=== PATIENT | male | born 1955 | race Caucasian/White ===

== ENCOUNTER 2017-07-30 11:27 | Inpatient (IN) | payer OTHER ==
[~2017-07-30] VITALS: Ht 175.3 cm; Wt 79.9 kg
--- NOTE | 2017-07-30 11:57 | ED CARDIAC/CP/PALPITATIONS ---
History of Present Illness General Chief Complaint: General Adult Stated Complaint: HYPOTENTION Source: patient Exam Limitations: no limitations Allergies Coded Allergies: No Known Allergies (07/30/17) Reconcile Medications Lisinopril 20 MG TABLET 1 TAB PO DAILY HEART (Reported) Pantoprazole Sodium 40 MG TABLET.DR 1 TAB PO DAILY GI (Reported) Simvastatin (Simvastatin*) 40 MG TABLET 1 TAB PO QPM CHOLESTEROL (Reported) Testosterone 50 MG/5 GRAM (1 %) GEL..GRAM. 1 TUBE TOP DAILY LOW T (Reported) Zolpidem Tartrate (Zolpidem Tartrate ER) 12.5 MG TAB.MPHASE 1 TAB PO QPM SLEEP (Reported) Triage Note: PT ARRIVES FROM FRONT LOBBY WAS AT DR ROTH OFFICE FOR F/U FROM [facility] NOTED TO BE HYPOTENSIVE 80'S UPON ARRIVAL LETHAGIC, CO "SQUEEZING IN BRAIN" NEED PROTEIN, PT UNABLE TO COLLECT THOUGHTS EPIFANIO CARTER AT BEDSIDE IN [facility] IV ESTABLISHED TO . 120/72 HR 68 Triage Nurses Notes Reviewed? yes HPI: 62-year-old male presents emergency department complaining of weakness and lethargy. Patient was at his primary doctor's office today and noted to be hypertensive. He has been having hiccups for the past 10 days. For the past 3 days he has been having the squeezing sensation radiating up his neck to his brain. States he has not been able to eat or drink anything for the past 10 days. His urine has been very dark. He denies any chest pain or shortness of breath. Denies cough. Denies any fever or chills. No nausea or vomiting. No diarrhea or constipation. Patient does have a history of hypertension for which he takes lisinopril for. Patient is an overall poor historian. (Dylon FLOOD,Osvaldo) Vital Signs & Intake/Output Vital Signs & Intake/Output Vital Signs Date Time Temp Pulse Resp B/P B/P Pulse O2 O2 Flow FiO2 Mean Ox Delivery Rate 07/30 1531 90 18 107/60 96 Room Air 07/30 1245 97 Room Air 07/30 1230 100 18 109/65 96 Room Air 07/30 1215 98.5 130 18 114/77 07/30 1152 98.5 130 18 114/77 97 Room Air (Yocasta KEENAN,Jean Goldstein) Past History Travel History Traveled to [place] past 21 day No Medical History Any Pertinent Medical History? see below for history Neurological: NONE EENT: NONE Cardiovascular: hypertension Respiratory: NONE Gastrointestinal: NONE Hepatic: NONE Renal: NONE Musculoskeletal: NONE Psychiatric: NONE Endocrine: NONE Surgical History Surgical History: none Psychosocial History What is your primary language Urdu Tobacco Use: Never used Family History Hx Contributory? No (Osvaldo Osborne PA-C) Review of Systems Review of Systems Constitutional: Reports: see HPI. EENTM: Reports: no symptoms. Respiratory: Reports: no symptoms. Cardiovascular: Reports: see HPI. GI: Reports: see HPI. Genitourinary: Reports: no symptoms. Musculoskeletal: Reports: no symptoms. Skin: Reports: no symptoms. Neurological/Psychological: Reports: see HPI. All Other Systems: Reviewed and Negative (Dylon FLOOD,Osvaldo) Physical Exam Physical Exam General Appearance: Pt is slightly diaphoretic, lethargic, responds appropriately, no distress Head: atraumatic, normal appearance Eyes: Bilateral: normal appearance, PERRL, EOMI. Ears, Nose, Throat: Dry mucous membranes Neck: supple no JVD Respiratory: normal breath sounds, no respiratory distress, lungs clear Cardiovascular: irregularly irregular Peripheral Pulses: 2+ radial (R), 2+ radial (L) Gastrointestinal: normal bowel sounds, soft, non-tender Neurologic/Psych: no motor/sensory deficits, awake, alert, oriented x 3, order puller II- XII nml as tested, No pronator drift. Finger to nose intact, Gait not tested Skin: mild diaphoresis Core Measures ACS in differential dx? Yes CVA/TIA Diagnosis Yes Sepsis Present: No Sepsis Focused Exam Completed? No (Dylon FLOOD,Osvaldo) Progress Differential Diagnosis: AMI, aortic dissection, atrial fibrillation, CHF/pulm edema, hyperkalemia, hypovolemia, pneumonia, pulmonary embolism, unstable angina , hyponatremia Diagnostic Imaging: Viewed by Me: Radiology Read. Discussed w/RAD: Radiology Read. CXR Impression: PATIENT: AMANDA FOWLER PRESENT AGE: 62 PATIENT ACCOUNT NO: [id number] : 55 LOCATION: [facility] ORDERING PHYSICIAN: Osvaldo Osborne PA-C SERVICE DATE: 07/30/17 EXAM TYPE: RAD - XRY-PORTABLE CHEST XRAY EXAMINATION: XR PORTABLE CHEST CLINICAL INFORMATION: Chest pain. Atrial fibrillation. COMPARISON: None available. TECHNIQUE: Portable frontal view of the chest was obtained. FINDINGS: Symmetric lung inflation. No focal consolidation or pneumothorax. Mild blunting of the left costophrenic angle, possibly a small effusion. No overt edema. Cardiac silhouette size is normal. No acute osseous findings. IMPRESSION: Trace left pleural effusion. The lungs are otherwise clear. DICTATED BY: Jean Carranza MD DATE/TIME DICTATED:07/30/171404 SENIOR ADVISORY:DIAZ DATE/TIME TRANSCRIBED:07/30/171404 CONFIDENTIAL, DO NOT COPY WITHOUT APPROPRIATE AUTHORIZATION. <Electronically signed in Other Vendor System> SIGNED BY: Jean Carranza MD 07/30/17 1410 Initial ED EKG: Atrial fibrillation at 129 bmp. Comments: Update @ 1245: D/W cardio Dr. Arndt. Recommended anticoags. He will follow case D/w hospitalist, admit to tele Patient with history of hypertension presenting with 3 days of a "funny feeling shooting from his neck to his brain". He was found to be hypotensive at his doctor's appointment today. Initial EKG shows atrial fibrillation 129 bpm. Patient was found to be hyponatremic at 123 with blood work. He is slightly hypocalcemic. I did discuss this case with cardiology. Patient was started on IV heparin and he is being fluid resuscitated. Patient will be admitted to telemetry for further management. (Dylon FLOOD,Osvaldo) Plan of Care: Orders Procedure Date/time Status Heart Healthy Diet 07/30 D Active TROPONIN LEVEL 07/30 1800 Active EKG 07/30 1800 Active BASIC ELECTROLYTES PLUS BUN&CR 07/30 1600 Active ECHOCARDIOGRAM 07/30 1342 Active Lab Add-on Test 07/30 1339 Active Pathway - chart 07/30 1337 Active Code Status 07/30 1337 Active Patient Data 07/30 1327 Active Misc Message 07/30 1325 Active ED Holding Orders 07/30 1325 Active Admit to inpatient 07/30 1325 Active Vital Signs 07/30 1325 Active Code Status 07/30 1325 Complete Add-on Test (ER Only) 07/30 1316 Active Add-on Test (ER Only) 07/30 1258 Active Add-on Test (ER Only) 07/30 1250 Active Intake & Output 07/30 1246 Active URINE DRUGS OF ABUSE 07/30 1218 Complete URINE LYTES, SPOT 07/30 1218 Complete FingerStick- Glucose 07/30 1207 Active THYROID STIMULATING HORMONE 07/30 1200 Active PARTIAL THROMBOPLASTIN TIME 07/30 1200 Complete PROTHROMBIN TIME 07/30 1200 Complete SERUM OSMOLALITY 07/30 1200 Active MAGNESIUM 07/30 1200 Active GLYCOSYLATED HGB 07/30 1200 Active FREE T4 07/30 1200 Active ETHANOL 07/30 1200 Active URINE OSMOLALITY 07/30 1131 Complete URINALYSIS 07/30 1131 Complete TROPONIN LEVEL 07/30 1131 Active LIPASE 07/30 1131 Active COMPREHENSIVE METABOLIC PANEL 07/30 1131 Active CBC WITHOUT DIFFERENTIAL 07/30 1131 Complete EKG 07/30 1128 Active Pathway - chart 07/30 UNK Active House Staff 07/30 UNK Active Lab Add-on Test 07/30 UNK Active Lab Add-on Test 07/30 UNK Active VTE Mechanical Prophylaxis 07/30 UNK Active Vital Signs 07/30 UNK Active Current Medications Sig/Ernesto Start time Last Medication Dose Stop Time Status Admin Atorvastatin Calcium 20 MG 1700 07/30 1700 UNVr (Lipitor) Heparin Sodium 25,000 UNIT Q24H 07/30 1330 AC 07/30 (Porcine) 1453 (Heparin) Sodium Chloride 500 ML Diltiazem HCl 125 MG Q24H 07/30 1215 AC 07/30 (Cardizem DRIP) 1241 Sodium Chloride 100 ML (Normal Saline 0.9%) Laboratory Tests 07/30/17 1218: Urine Color YEL, Urine Clarity CLEAR, Urine pH 6.0, Ur Specific [place] 1.020, Urine Protein NEG, Urine Ketones NEG, Urine Nitrite NEG, Urine Bilirubin NEG, Urine Urobilinogen 0.2, Ur Leukocyte Esterase NEG, Ur Microscopic SEDIMENT EXAMINED, Urine RBC 1-3, Urine WBC 1-3 H, Ur Epithelial Cells FEW, Hyaline Casts 1-3 H, Granular Casts 1-3 H, Urine Mucus FEW, Urine Hemoglobin TRACE- INTACT H, Urine Glucose NEG 07/30/17 1218: Urine Opiates Screen < 100, Methadone Screen < 40, Barbiturate Screen < 60, Ur Phencyclidine Scrn < 6.00, Amphetamines Screen < 100, U Benzodiazepines Scrn < 85, Urine Cocaine Screen < 50, Urine Cannabis Screen 79.10 H, Ur Random Creatinine 126.4, Ur Random Sodium < 5 L, Ur Random Potassium 23.0, Fraction Sodium Excret 0.0 07/30/17 1200: Anion Gap 12, Estimated GFR > 60, BUN/Creatinine Ratio 42.7 H, Glucose 181 H, Hemoglobin A1c Pending, Serum Osmolality 278 L, Calcium 7.9 L, Magnesium 2.9 H, Total Bilirubin 0.8, AST 66 H, ALT 65, Alkaline Phosphatase 64, Troponin I < 0.01, Total Protein 6.0 L, Albumin 2.9 L, Globulin 3.1, Albumin/Globulin Ratio 0.9 L, Lipase 183, TSH 1.320, Free T4 1.91, PT 13.8 H, INR 1.26 H, APTT 28, CBC w Diff MAN DIFF ORDERED, RBC 5.18, MCV 89.5, MCH 31.0, MCHC 34.6, RDW 15.1 H, MPV 9.1, Gran % 86.8 H, Lymphocytes % 9.9 L, Monocytes % 3.2, Eosinophils % 0.1, Basophils % 0, Absolute Granulocytes 7.3 H, Segmented Neutrophils 85 H, Absolute Lymphocytes 0.8 L, Lymphocytes 7 L, Monocytes 8, Absolute Monocytes 0.3, Absolute Eosinophils 0, Absolute Basophils 0, Platelet Estimate VERIFIED BY SMEAR, Normocytic RBCs VERIFIED, Normochromic RBCs VERIFIED, Serum Alcohol < 10.0 07/30/17 1131: Urine Osmolality 617 (Yocasta KEENAN,Jean Goldstein) Departure Departure Disposition: STILL A PATIENT Condition: Stable Referrals: Ernestina Roth MD (PCP/Family) Departure Forms: Customer Survey General Discharge Information Admission Note Spoke With: Domi Dickerson MD Documentation of Exam: Documentation of any treatments & extenuating circumstances including Concerns Regarding Discharge (functional status, medication knowledge or non-compliance, living conditions, etc.) that warrant an admission rather than observation: [New onset atrial fibrillation and hyponatremia requiring cardiology consult, IV heparin, IV rate control, telemetry monitoring, trend EKGs and troponins, electrolyte replacement, premature discharge medically unsafe] (Dylon FLOOD,Osvaldo) Departure Clinical Impression Primary Impression: Atrial fibrillation Secondary Impressions: Hyponatremia PA/EYEGLASS FITTER Co-Sign Statement Statement: ED Attending supervision documentation- [X] I saw and evaluated the patient. I have also reviewed all the pertinent lab results and diagnostic results. I agree with the findings and the plan of care as documented in the PA's/EYEGLASS FITTER's documentation. Patient presents for evaluation of hypotension and irregular heartbeat at his physician's office. Physical examination reveals an alert and interactive gentleman in no apparent respiratory distress. Heart rate is moderately rapid and irregular. [] I have reviewed the ED Record and agree with the PA's/EYEGLASS FITTER's documentation. [] Additions or exceptions (if any) to the PAs/EYEGLASS FITTER's note and plan are summarized below: [] (Yocasta KEENAN,Jean Goldstein) Critical Care Note Critical Care Note Critical Care Time: non-applicable (Dylon FLOOD,Osvaldo)
[2017-07-30 12:08] LABS: ABSOLUTE BASOPHIL COUNT 0 /CUMM (0.0-0.2); ABSOLUTE EOSINOPHIL COUNT 0 /CUMM (0.0-0.7); ABSOLUTE GRANULOCYTE CT 7.3 /CUMM (1.4-6.5); ABSOLUTE LYMPH COUNT 0.8 /CUMM (1.2-3.4); ABSOLUTE MONOCYTE COUNT 0.3 /CUMM (0.10-0.60); BASOPHIL % 0 % (0.0-2.0); EOSINOPHIL % 0.1 % (0-5); GRANULOCYTE % 86.8 % (42.2-75.2); HEMATOCRIT 46.3 % (42-52); MEAN CORPUSCULAR HGB CONC 34.6 G/DL (33.0-37.0); MEAN CORPUSCULAR VOLUME 89.5 FL (80.0-94.0); MEAN PLATELET VOLUME 9.1 FL (7.4-10.4); PLATELET COUNT 136 /CUMM (130-400); RBC DISTRIBUTION WIDTH 15.1 % (11.5-14.5); RED BLOOD CELL CT 5.18 /CUMM (4.70-6.10); WHITE BLOOD CELL COUNT 8.4 /CUMM (4.8-10.8)
--- NOTE | 2017-07-30 13:31 | History & Physical ---
Candie Sue MD 07/30/17 1331: General Information and HPI MD Statement: I have seen and personally examined AMANDA FOWLER and documented this H&P. The patient is a 62 year old M who presented with a patient stated chief complaint of [hypotension]. Source of Information: patient History of Present Illness: 62-year-old gentleman with past medical history of hypertension, dyslipidemia was sent from Dr. Guo office with complaints of low blood pressure and hicough. was in usual state of health until 10 days ago, following which had intractable hiccups with nausea and couple of episodes of vomiting and saw Dr. Guo who started him on antiemetic and baclofen. Patient's hiccups stopped but patient developed shooting"arterial pulsation"going from his neck to the head on and off for the past 4 days. Patient went to see his primary care physician again who suggested to stop baclofen and checked his blood pressure which was found to be in 80s and hence was sent to [facility]. He denied chest pain, palpitation, fever, chills, abdominal pain, diarrhea, constipation, weakness, numbness, tingling sensation during the same time. Patient gives history of tick bite 10 days ago which he pulled it off. Allergies/Medications Allergies: Coded Allergies: No Known Allergies (07/30/17) Home Med list Lisinopril 20 MG TABLET 1 TAB PO DAILY HEART (Reported) Pantoprazole Sodium 40 MG TABLET.DR 1 TAB PO DAILY GI (Reported) Simvastatin (Simvastatin*) 40 MG TABLET 1 TAB PO QPM CHOLESTEROL (Reported) Testosterone 50 MG/5 GRAM (1 %) GEL..GRAM. 1 TUBE TOP DAILY LOW T (Reported) Zolpidem Tartrate (Zolpidem Tartrate ER) 12.5 MG TAB.MPHASE 1 TAB PO QPM SLEEP (Reported) Compliance With Home Meds: GOOD Past History Travel History Traveled to [place] past 21 day No Medical History Neurological: NONE EENT: NONE Cardiovascular: hypertension Respiratory: NONE Gastrointestinal: NONE Hepatic: NONE Renal: NONE Musculoskeletal: NONE Psychiatric: NONE Endocrine: NONE Surgical History Surgical History: none Past Family/Social History Family History Relations & Conditions if any MOTHER (atrial fib). Psychosocial History Where do you live? Home Who Do You Live With? spouse Services at Home: None Primary Language: Hebrew Smoking Status: Never Smoked ETOH Use: denies use Illicit Drug Use: denies illicit drug use Functional Ability ADLs Independent: dressing, eating, toileting, bathing. Ambulation: independent IADLs Independent: shopping, housework, finances, food prep, telephone, transportation , medication admin. Review of Systems Review of Systems Constitutional: Reports: no symptoms. Cardiovascular: Reports: no symptoms. Respiratory: Reports: no symptoms. GI: Reports: no symptoms. Genitourinary: Reports: no symptoms. Musculoskeletal: Reports: no symptoms. Skin: Reports: no symptoms. Exam & Diagnostic Data Last 24 Hrs of Vital Signs/I&O Vital Signs Date Time Temp Pulse Resp B/P B/P Pulse O2 O2 Flow FiO2 Mean Ox Delivery Rate 07/30 1649 98.2 91 18 114/66 96 07/30 1531 90 18 107/60 96 Room Air 07/30 1245 97 Room Air 07/30 1230 100 18 109/65 96 Room Air 07/30 1215 98.5 130 18 114/77 07/30 1152 98.5 130 18 114/77 97 Room Air Intake & Output 07/30 1600 07/30 0800 07/30 0000 Intake Total 1000 Output Total Balance 1000 Intake, IV 1000 Patient 170 lb Weight Weight Estimated Measurement Method Physical Exam General Appearance Alert, Oriented X3, Cooperative, No Acute Distress HEENT PERRLA Neck No JVD, No thryomegaly, +2 Carotid Pulse wo Bruit Cardiovascular Normal S1, Normal S2, irregular Lungs Clear to Auscultation Abdomen Soft, No Tenderness, No Hepatospenomegaly Neurological Normal Speech, Strength at 5/5 X4 Ext, Normal Tone, Sensation Intact Extremities No Cyanosis, No Edema, Normal Pulses Last 24 Hrs of Labs/Mike: Laboratory Tests 07/30/17 1808: Troponin I Pending 07/30/17 1650: Anion Gap 9, Estimated GFR > 60, BUN/Creatinine Ratio 38.9 H 07/30/17 1218: Urine Color YEL, Urine Clarity CLEAR, Urine pH 6.0, Ur Specific [place] 1.020, Urine Protein NEG, Urine Ketones NEG, Urine Nitrite NEG, Urine Bilirubin NEG, Urine Urobilinogen 0.2, Ur Leukocyte Esterase NEG, Ur Microscopic SEDIMENT EXAMINED, Urine RBC 1-3, Urine WBC 1-3 H, Ur Epithelial Cells FEW, Hyaline Casts 1-3 H, Granular Casts 1-3 H, Urine Mucus FEW, Urine Hemoglobin TRACE- INTACT H, Urine Glucose NEG 07/30/17 1218: Urine Opiates Screen < 100, Methadone Screen < 40, Barbiturate Screen < 60, Ur Phencyclidine Scrn < 6.00, Amphetamines Screen < 100, U Benzodiazepines Scrn < 85, Urine Cocaine Screen < 50, Urine Cannabis Screen 79.10 H, Ur Random Creatinine 126.4, Ur Random Sodium < 5 L, Ur Random Potassium 23.0, Fraction Sodium Excret 0.0 07/30/17 1200: Anion Gap 12, Estimated GFR > 60, BUN/Creatinine Ratio 42.7 H, Glucose 181 H, Hemoglobin A1c Pending, Serum Osmolality 278 L, Calcium 7.9 L, Magnesium 2.9 H, Total Bilirubin 0.8, AST 66 H, ALT 65, Alkaline Phosphatase 64, Troponin I < 0.01, Total Protein 6.0 L, Albumin 2.9 L, Globulin 3.1, Albumin/Globulin Ratio 0.9 L, Lipase 183, TSH 1.320, Free T4 1.91, PT 13.8 H, INR 1.26 H, APTT 28, CBC w Diff MAN DIFF ORDERED, RBC 5.18, MCV 89.5, MCH 31.0, MCHC 34.6, RDW 15.1 H, MPV 9.1, Gran % 86.8 H, Lymphocytes % 9.9 L, Monocytes % 3.2, Eosinophils % 0.1, Basophils % 0, Absolute Granulocytes 7.3 H, Segmented Neutrophils 85 H, Absolute Lymphocytes 0.8 L, Lymphocytes 7 L, Monocytes 8, Absolute Monocytes 0.3, Absolute Eosinophils 0, Absolute Basophils 0, Platelet Estimate VERIFIED BY SMEAR, Normocytic RBCs VERIFIED, Normochromic RBCs VERIFIED, Serum Alcohol < 10.0 07/30/17 1131: Urine Osmolality 617 Diagnostic Data EKG Results Atrial fibrillation with a heart rate of 1:30. CXR Results Trace left pleural effusion. The lungs are otherwise clear. Assessment/Plan Assessment: 62-year-old gentleman with past medical history of hyperlipidemia, hypertension was sent from Dr. Guo office with complaints of low blood pressure and hicough Admission vitals Temperature 98.5, pulse rate 130, respiratory rate 18, blood pressure 114/77, saturating 97 at room air. Admission labs WBC 8.4, hemoglobin 16, platelet count 136, sodium 123, BUN 47, creatinine 1.1, glucose 181, serum osmolality 278, calcium 7.9 corrected calcium 8.4, troponin 0.01 ED treatment 1 L normal saline, Cardizem 10 mg IV push, patient is on Cardizem drip now. Assessment and plan 1. Atrial fibrillation with RVR-his atrial fibrillation can be secondary due to dehydration/systemic hypertension. Patient with peripheral smear showing Anaplasma but this causes heart block rather than atrial fibrillation. Patient was seen by Dr. Allen was suggested to continue Cardizem, IV heparin given that we don't know how long he was on A. fib though his CHADVAS score is one. Echocardiogram in a.m. 2 hypovolemic hyponatremia-patient was given 1 L of normal saline. His repeat sodium was also 123 hence we will give normal saline at 70 mL per hour with sodium correction not more than 8-10 mEq in 24 hours. 3. Elevated BUN:CR-looks more likely prerenal as it anemia given that he was having decreased by mouth intake for the past few week. 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 ID on board. 5. Cannabis use. Code-full code Diet-heart healthy diet DVT prophylaxis-on heparin As Ranked By This Provider Problem List: 1. Atrial fibrillation 2. Hyponatremia Core Measures/Misc (10/25) Acute Coronary Syndrome ACS Diagnosis: No Congestive Heart Failure Congestive Heart Failure Diagnosis No Cerebrovascular Accident CVA/TIA Diagnosis: No VTE (View Protocol) VTE Risk Factors Age>40 No Mechanical VTE Prophylaxis d/t Other No VTE Pharm Prophylaxis d/t Other Sepsis (View protocol) Sepsis Present: No If YES complete Sepsis Event Note If YES complete Sepsis Event Note Galen KEENAN,Brayden 07/30/17 1342: Core Measures/Misc (10/25) Sepsis (View protocol) If YES complete Sepsis Event Note If YES complete Sepsis Event Note Resident Review Statement Resident Statement: examined this patient, discussed with internal audit manager, amended to note Other Findings: Assessment This 62 year-old gentleman with a past medical history of hypertension, hyperlipidemia,skin cancer s/p excision with no mets, presents with atrial fibrillation with rapid ventricular rate. Impression * New onset of atrial fibrillation with rapid ventricular rate with [id number] score of 1, which may or may not necessitate oral anticoagulation. Hypertension is the most common cause of atrial fibrillation in the [place], his hx of hypertension puts him at risk. * Pre-renal azotemia most likely secondary to dehydration as evident by an elevated BUN/creatinine ratio. * Hyponatremia with the serum osmolarity of 278 and asymptomatic. Given the elevated BUN/creatinine ratio,hypotension, and decrease fluid intake, patient presents with laboratory and clinical evidence suggestive of hypovolemic hyponatremia. In this case he will have a hemodynamic derived ADH stimulus, hence the hyponatremia (his urine osmolarity of 687 lends further credence to an ADH stimulus). Plan Admit to cardiac telemetry for close monitoring Continue Cardizem drip for rate control with a goal of heart rate of less than 110 Continue heparin drip per cardiology recommendation Obtain TSH level to rule out thyroid causes for the A. fib Obtain an echocardiogram to assess for valvular pathologies Obtain urine lites to further classify the hyponatremia Hypovolemic hyponatremia has a propensity to rapidly correct if patient receives IV fluid hydration(this is due to the turning off of the hemodynamic stimulus ADH release) will obtain another BEP in 4 hours to closely monitor sodium levels and avoid overcorrection. Moderate to significant increase in urine output can also use a surrogate marker of possible impedningg overcorrection Obtain AIC DVT prophylaxis: address by a heparin drip Code status: FULL CODE Alex KEENAN,Mariel 07/30/17 1508: Core Measures/Misc (10/25) Sepsis (View protocol) If YES complete Sepsis Event Note If YES complete Sepsis Event Note Attending MD Review Statement Attending Statement Attending MD Statement: examined this patient, discuss w/resident/PA/INSURANCE OFFICE MANAGER, agreed w/resident/PA/INSURANCE OFFICE MANAGER, reviewed EMR data (avail), discussed with nursing, reviewed images Attending Assessment/Plan: 62-year-old male with past medical history hypertension and hyperlipidemia here with with new onset rapid A. fib. Patient was being evaluated at his PCPs office Vishal Leonard MD's office for intractable hiccups where he was noted to be hypotensive and in new rapid A. fib. The etiology of the A. fib is likely long- standing hypertension and hypertensive heart disease, there is no evidence of hypothyroidism or acute ischemia. At this point will bring him in to telemetry, continue the Cardizem for rate control and IV heparin for anticoagulation. Dr. Allen knows to see him and will follow-up with Dr. Allen. We'll get an echocardiogram, rule him out with serial enzymes. He also is dehydrated with hypovolemic hyponatremia and PIPER with an elevated BUN. Would hold the KALA inhibitor and give gentle hydration. Check thyroid functions and follow closely.
[2017-07-30 13:39] LABS: PT 13.8 SEC (9.4-12.5); PTT 28 SEC (25-37)
--- NOTE | 2017-07-30 13:49 | Admission Certification ---
Admission Certification Certification Statement - As attending physician, I certify that at the time of - admission, based on clinical presentation, severity of - symptoms, need for further diagnostic testing and - therapeutic interventions, and risk of adverse outcomes - without in-hospital treatment, in my clinical assessment, - this patient requires an acute hospital stay for a minimum - of two nights or longer. I have also considered psychsocial - factors such as support system, advanced age, financial - issues, cognitive issues, and failed out-patient treatments, - past re-admission history, safety of patient, and lack of - compliance as applicable. Specific rationale supporting this admission is: New rapid afib, needs anticoagulation and rate control
--- NOTE | 2017-07-30 14:10 | RADIOLOGY REPORT ---
EXAMINATION: XR PORTABLE CHEST CLINICAL INFORMATION: Chest pain. Atrial fibrillation. COMPARISON: None available. TECHNIQUE: Portable frontal view of the chest was obtained. FINDINGS: Symmetric lung inflation. No focal consolidation or pneumothorax. Mild blunting of the left costophrenic angle, possibly a small effusion. No overt edema. Cardiac silhouette size is normal. No acute osseous findings. IMPRESSION: Trace left pleural effusion. The lungs are otherwise clear.
[2017-07-30] MEDS ORDERED: SIMVASTATIN40 M1 PO (15:06)
[2017-07-30] MEDS ORDERED: LISINOPRIL20 M1 PO (15:06)
[2017-07-30] MEDS ORDERED: PANTOPRAZOLE SO40 M1 PO (15:07)
[2017-07-30] MEDS ORDERED: ZOLPIDEM TART12.5 M1 PO (15:07)
[2017-07-30] MEDS ORDERED: TESTOSTERONE TOP (15:08)
[2017-07-30 16:49] VITALS: BP 114/66
--- NOTE | 2017-07-30 17:00 | Cons- Infect Disease ---
General Information and HPI Consulting Request Date of Consult: 07/30/17 Requested By: Mariel Johnson MD Reason for Consult: Intracytoplasmic inclusions in the white blood cells on the peripheral smear Source of Information: patient History of Present Illness: This is a 62-year-old man with a history of hypertension and Lyme disease, seen by his primary care physician 10 days prior to admission for hiccups and vomiting, which reportedly resolved with symptomatic treatment, admitted today after he was referred to the emergency room by his primary care physician because of recurrent hiccups and hypotension. On arrival to the emergency room he complained of a squeezing pain in the neck up to the brain. He was afebrile , with a blood pressure of 120/72 and initial heart rate of 68 but, upon connection to the monitor car operator, he was found to be in atrial fibrillation with a rapid ventricular response in the 120s-130s. Laboratory data revealed a white blood cell count of 8000, H&H 16 and 46, platelets 136,000, with the peripheral smear revealing rare intracytoplasmic structures, glucose 181, BUN/ creatinine 47 and 1.1, sodium 123, AST/ALT 66 and 65, INR 1.26. Urinalysis 1-3 RBC/1-3 WBCs. Chest x-ray revealed a trace left pleural effusion. He was begun on Cardizem, with a decrease in his heart rate, and Heparin. He does report removing a tick from his right flank 10 days prior to admission and does spend a significant amount of time outdoors. He also notes recent chills. Allergies/Medications Allergies: Coded Allergies: No Known Allergies (07/30/17) Home Med List: Lisinopril 20 MG TABLET 1 TAB PO DAILY HEART (Reported) Pantoprazole Sodium 40 MG TABLET.DR 1 TAB PO DAILY GI (Reported) Simvastatin (Simvastatin*) 40 MG TABLET 1 TAB PO QPM CHOLESTEROL (Reported) Testosterone 50 MG/5 GRAM (1 %) GEL..GRAM. 1 TUBE TOP DAILY LOW T (Reported) Zolpidem Tartrate (Zolpidem Tartrate ER) 12.5 MG TAB.MPHASE 1 TAB PO QPM SLEEP (Reported) Past History Travel History Traveled to [place] past 21 day No Medical History Neurological: NONE EENT: NONE Cardiovascular: hypertension Respiratory: NONE Gastrointestinal: NONE Hepatic: NONE Renal: NONE Musculoskeletal: NONE Psychiatric: NONE Endocrine: NONE Surgical History Surgical History: none Review of Systems Review of Systems Constitutional: Reports: chills. Denies: fever. Cardiovascular: Denies: chest pain. Respiratory: Denies: short of breath. Musculoskeletal: Reports: neck pain. Denies: joint pain, muscle pain. Skin: Denies: rash. All Other Systems: Reviewed and Negative Exam & Diagnostic Data Last 24 Hrs of Vital Signs/I&O Vital Signs Date Time Temp Pulse Resp B/P B/P Pulse O2 O2 Flow FiO2 Mean Ox Delivery Rate 07/30 1531 90 18 107/60 96 Room Air 07/30 1245 97 Room Air 07/30 1230 100 18 109/65 96 Room Air 07/30 1215 98.5 130 18 114/77 07/30 1152 98.5 130 18 114/77 97 Room Air Intake & Output 07/30 1600 07/30 0800 07/30 0000 Intake Total 1000 Output Total Balance 1000 Intake, IV 1000 Patient 170 lb Weight Weight Estimated Measurement Method Physical Exam Other Physical Findings: He is awake and alert in no acute distress. He is afebrile. Skin reveals no rash. HEENT exam is negative. Neck is supple with no adenopathy. Lungs are clear. Heart irregular rhythm with no murmur. Abdomen is soft, nontender with positive bowel sounds. Back no CVA tenderness. Extremities no cyanosis, clubbing or edema. Neuro is without focality. Last 24 Hours of Lab Results: Laboratory Tests 07/30 07/30 1218 1218 Toxicology Urine Opiates Screen (>2000 NG/ML) < 100 Methadone Screen (>300 NG/ML) < 40 Barbiturate Screen (>200 NG/ML) < 60 Ur Phencyclidine Scrn (>25 NG/ML) < 6.00 Amphetamines Screen (>1000 NG/ML) < 100 U Benzodiazepines Scrn (>200 NG/ML) < 85 Urine Cocaine Screen (>300 NG/ML) < 50 Urine Cannabis Screen (>50 NG/ML) 79.10 H Urines Urine Color (YEL,AMB,STR) YEL Urine Clarity (CLEAR) CLEAR Urine pH (5.0 - 8.0) 6.0 Ur Specific [place] (1.001 - 1.035) 1.020 Urine Protein (NEG,<30 MG/DL) NEG Urine Ketones (NEG) NEG Urine Nitrite (NEG) NEG Urine Bilirubin (NEG) NEG Urine Urobilinogen (0.1 - 1.0 EU/dl) 0.2 Ur Leukocyte Esterase (NEG) NEG Ur Microscopic SEDIMENT EXAMINED Urine RBC (0 - 5 /HPF) 1-3 Urine WBC (0 - 2 /HPF) 1-3 H Ur Epithelial Cells (NONE,FEW) FEW Hyaline Casts (0/LPF) 1-3 H Granular Casts (NONE /LPF) 1-3 H Urine Mucus (FEW,NONE) FEW Urine Hemoglobin (NEG) TRACE-INTACT H Ur Random Creatinine (mg/dL) 126.4 Ur Random Sodium (30 - 90 mmol/L) < 5 L Ur Random Potassium (mmol/L) 23.0 Fraction Sodium Excret (<1% %) 0.0 Urine Glucose (N MG/DL) NEG 07/30 07/30 1200 1131 Chemistry Sodium (137 - 145 mmol/L) 123 L Potassium (3.5 - 5.1 mmol/L) 4.4 Chloride (98 - 107 mmol/L) 86 L Carbon Dioxide (22 - 30 mmol/L) 25 Anion Gap (5 - 16) 12 BUN (9 - 20 mg/dL) 47 H Creatinine (0.7 - 1.2 mg/dL) 1.1 Estimated GFR (>60 ml/min) > 60 BUN/Creatinine Ratio (7 - 25 %) 42.7 H Glucose (65 - 99 mg/dL) 181 H Hemoglobin A1c (4.2 - 5.8 %) Pending Serum Osmolality (285 - 295 MOSM/KG) 278 L Calcium (8.4 - 10.2 mg/dL) 7.9 L Magnesium (1.6 - 2.3 mg/dL) 2.9 H Total Bilirubin (0.2 - 1.3 mg/dL) 0.8 AST (17 - 59 U/L) 66 H ALT (21 - 72 U/L) 65 Alkaline Phosphatase (< 127 U/L) 64 Troponin I (<0.11 ng/ml) < 0.01 Total Protein (6.3 - 8.2 g/dL) 6.0 L Albumin (3.5 - 5.0 g/dL) 2.9 L Globulin (1.9 - 4.2 gm/dL) 3.1 Albumin/Globulin Ratio (1.1 - 2.2 %) 0.9 L Lipase (23 - 300 U/L) 183 TSH (0.270 - 4.200 uIU/mL) 1.320 Free T4 (0.78 - 2.44 ng/dL) 1.91 Coagulation PT (9.4 - 12.5 SEC) 13.8 H INR (0.90 - 1.17) 1.26 H APTT (25 - 37 SEC) 28 Hematology CBC w Diff MAN DIFF ORDERED WBC (4.8 - 10.8 /CUMM) 8.4 RBC (4.70 - 6.10 /CUMM) 5.18 Hgb (14.0 - 18.0 G/DL) 16.0 Hct (42 - 52 %) 46.3 MCV (80.0 - 94.0 FL) 89.5 MCH (27.0 - 31.0 PG) 31.0 MCHC (33.0 - 37.0 G/DL) 34.6 RDW (11.5 - 14.5 %) 15.1 H Plt Count (130 - 400 /CUMM) 136 MPV (7.4 - 10.4 FL) 9.1 Gran % (42.2 - 75.2 %) 86.8 H Lymphocytes % (20.5 - 51.1 %) 9.9 L Monocytes % (1.7 - 9.3 %) 3.2 Eosinophils % (0 - 5 %) 0.1 Basophils % (0.0 - 2.0 %) 0 Absolute Granulocytes (1.4 - 6.5 /CUMM) 7.3 H Segmented Neutrophils (42.2 - 75.2 %) 85 H Absolute Lymphocytes (1.2 - 3.4 /CUMM) 0.8 L Lymphocytes (20.5 - 51.1 %) 7 L Monocytes (1.7 - 9.3 %) 8 Absolute Monocytes (0.10 - 0.60 /CUMM) 0.3 Absolute Eosinophils (0.0 - 0.7 /CUMM) 0 Absolute Basophils (0.0 - 0.2 /CUMM) 0 Platelet Estimate (ADEQUATE) VERIFIED BY SMEAR Normocytic RBCs VERIFIED Normochromic RBCs VERIFIED Toxicology Serum Alcohol (<10 MG/DL) < 10.0 Urines Urine Osmolality (300 - 1000 MOSM/KG) 617 Last 24 Hours of Mike Results: No cultures Diagnostic Data Recent Imaging Findings: Chest x-ray reveals a trace left pleural effusion with lungs otherwise clear Assessment/Plan Assessment/Plan Impression: This is a 62-year-old man with a history of hypertension and Lyme disease admitted today with the complaints of hiccups, chills and "squeezing of the brain" after he was found to be hypotensive by his primary care physician, found on admission to be afebrile and normotensive with rapid atrial fibrillation, hyperglycemia, hyponatremia and with the peripheral smear revealing rare intracytoplasmic structures. The peripheral smear is suggestive of infection with Anaplasma. His platelet count is borderline and suspect that it may decrease by tomorrow. He does report frequent outdoor exposure and did remove a tick from his right flank approximately 10 days prior to admission, increasing his risk for tickborne infections. The etiology of his "brain squeezing" is unclear but this may be a manifestation of a headache or arthralgias, which would be consistent with Anaplasma. Co-infection with Lyme disease may be present and Lyme carditis could be considered, though this typically presents with heart block and not atrial fibrillation. Other issues include dehydration, with an elevated BUN, hyperglycemia and hyponatremia, which are being evaluated. Suggestion: 1. Serum PCR for Anaplasma 2. Lyme titer 3. Further evaluation/management of his electrolytes per Medicine 4. Begin Doxycycline 100 mg p.o. every 12 hours pending above Consult Acknowledgment - Thank you for your consult request.
--- NOTE | 2017-07-30 21:39 | Cons- Cardiology ---
General Information and HPI Consulting Request Date of Consult: 07/30/17 Requested By: Alex KEENAN,Mariel Cannon History of Present Illness: This patient is a 62 year old male with history of hypertension, dyslipidemia and marijuana abuse who was sent to the ER for evaluation of atrial fibrillation with rapid heart rate and hypotension. The patient was exposed to a tick bite and reported fever, weakness and fatigue along with nausea and vomiting. He also reported having hiccups. He also reports some discomfort in his neck radiating up to his head. These symptoms initially began about ten days ago. Otherwise the patient denies any chest pain, pressure, tightness, shortness of breath, lightheadedness or palpitations. He was not aware of being in atrial fibrillation. The patient is noted to be hyponatremic. Allergies/Medications Allergies: Coded Allergies: No Known Allergies (07/30/17) Home Med List: Lisinopril 20 MG TABLET 1 TAB PO DAILY HEART (Reported) Pantoprazole Sodium 40 MG TABLET.DR 1 TAB PO DAILY GI (Reported) Simvastatin (Simvastatin*) 40 MG TABLET 1 TAB PO QPM CHOLESTEROL (Reported) Testosterone 50 MG/5 GRAM (1 %) GEL..GRAM. 1 TUBE TOP DAILY LOW T (Reported) Zolpidem Tartrate (Zolpidem Tartrate ER) 12.5 MG TAB.MPHASE 1 TAB PO QPM SLEEP (Reported) Review of Systems Review of Systems: headache Past History Travel History Traveled to [place] past 21 day No Medical History Blood Transfusion Hx: No Neurological: NONE EENT: NONE Cardiovascular: AFIB, hyperlipidemia Respiratory: NONE Gastrointestinal: constipation, HICCUPS Hepatic: NONE Renal: NONE Musculoskeletal: fibromyalgia, sciatica Psychiatric: insomnia, substance abuse, "HEARING VOICES" IV HEROIN USE Endocrine: NONE, vitamin D deficiency Blood Disorders: NONE Cancer(s): MELANOMA (NECK) FRAUD PREVENTION ANALYST/Reproductive: NONE Surgical History Surgical History: 1 Family History Relations & Conditions If Any: MOTHER (atrial fib). Psychosocial History Where Do You Live? Home Who Do You Live With? spouse Services at Home: None Primary Language: Khmer Smoking Status: Never Smoked ETOH Use: denies use Illicit Drug Use: denies illicit drug use Functional Ability ADLs Independent: dressing, eating, toileting, bathing. Ambulation: independent IADLs Independent: shopping, housework, finances, food prep, telephone, transportation , medication admin. Exam & Diagnostic Data Vital Signs and I&O Vital Signs Date Time Temp Pulse Resp B/P B/P Pulse O2 O2 Flow FiO2 Mean Ox Delivery Rate 07/30 1649 98.2 91 18 114/66 96 07/30 1531 90 18 107/60 96 Room Air 07/30 1245 97 Room Air 07/30 1230 100 18 109/65 96 Room Air 07/30 1215 98.5 130 18 114/77 07/30 1152 98.5 130 18 114/77 97 Room Air Intake & Output 07/30 1600 07/30 0800 07/30 0000 07/29 1600 07/29 0800 07/29 0000 Intake Total 1000 Output Total Balance 1000 Intake, IV 1000 Patient 170 lb Weight Weight Estimated Measurement Method Physical Exam: General: WD/WN male in NAD; alert and oriented x 3 HEENT: NC/AT, PERRL, EOMI Neck: no JVD, no carotid bruits Heart: RRR w/o murmur Lungs: clear bilaterally Abdomen: soft, NT, +ve bowel sounds Extremities: no edema Assessment/Plan Assessment/Plan * This patient has paroxysmal atrial fibrillation with increased heart rate. He has spontaneously converted back to sinus rhythm. Thyroid function tests are in the normal range. Obtain an echocardiogram to assess his overall EF and to assess his left atrial size. Valvular heart disease is not suspected. His current [id number] score is 1 with only a history of hypertension and therefore we will only anticoalate with aspirin for now. * Hypertension. This is not present at the moment. I suspect the patient is a bit dry. No Lisinopril for now. * This patient appears to ramble which I suspect is related to his marijuana use. Consult Acknowledgment - Thank you for your consult request.
[2017-07-30 21:59] LABS: PTT 64 SEC (25-37)
[2017-07-30 22:23] VITALS: BP 110/70
[2017-07-31 06:54] VITALS: BP 110/68
[2017-07-31 07:28] LABS: ABSOLUTE BASOPHIL COUNT 0 /CUMM (0.0-0.2); ABSOLUTE EOSINOPHIL COUNT 0 /CUMM (0.0-0.7); ABSOLUTE GRANULOCYTE CT 3.6 /CUMM (1.4-6.5); ABSOLUTE LYMPH COUNT 0.8 /CUMM (1.2-3.4); ABSOLUTE MONOCYTE COUNT 0.2 /CUMM (0.10-0.60); BASOPHIL % 0.5 % (0.0-2.0); EOSINOPHIL % 0.5 % (0-5); GRANULOCYTE % 77.7 % (42.2-75.2); MEAN CORPUSCULAR HGB 30.9 PG (27.0-31.0); MEAN CORPUSCULAR VOLUME 90.7 FL (80.0-94.0); MEAN PLATELET VOLUME 10.2 FL (7.4-10.4); RBC DISTRIBUTION WIDTH 14.9 % (11.5-14.5); RED BLOOD CELL CT 4.35 /CUMM (4.70-6.10); WHITE BLOOD CELL COUNT 4.6 /CUMM (4.8-10.8)
[2017-07-31 07:39] LABS: HEMATOCRIT 39.5 % (42-52)
[2017-07-31 07:47] LABS: PLATELET COUNT 120 /CUMM (130-400)
--- NOTE | 2017-07-31 09:03 | PN- Housestaff ---
See Addendum Subjective Follow-up For: Anaplasma Atrial fibrillation Tele-Events Since Last Visit: Normal sinus rhythm Subjective: Seen and examined. Resting comfortably. Does not of any complaints. Family at bedside. Denies any fevers chills, nausea vomiting. Denies any chest pain shortness of breath or palpitations Review of Systems Constitutional: Reports: see HPI. Objective Last 24 Hrs of Vital Signs/I&O Vital Signs Date Time Temp Pulse Resp B/P B/P Pulse O2 O2 Flow FiO2 Mean Ox Delivery Rate 07/31 0800 Room Air Room Air 07/31 0654 98.3 74 16 110/68 98 Room Air 07/30 2223 98.6 87 16 110/70 94 07/30 1649 98.2 91 18 114/66 96 07/30 1531 90 18 107/60 96 Room Air 07/30 1245 97 Room Air 07/30 1230 100 18 109/65 96 Room Air Intake & Output 07/31 1600 07/31 0800 07/31 0000 Intake Total 950 515 Output Total 925 475 Balance 25 40 Intake, IV 650 315 Intake, Oral 300 200 Output, Urine 925 475 Patient 178 lb Weight Weight Bed scale Measurement Method Physical Exam General Appearance: Alert, Oriented X3 Cardiovascular: Normal S1, Normal S2 Lungs: Clear to Auscultation Abdomen: Normal Bowel Sounds, Soft Neurological: Normal Speech Current Medications: Current Medications Sig/Ernesto Start time Last Medication Dose Route Stop Time Status Admin Aspirin 81 MG DAILY 07/31 0700 AC 07/31 PO 0607 Atorvastatin Calcium 20 MG 1700 07/30 1700 AC 07/30 PO 1815 Diltiazem HCl 30 MG Q6 07/31 1200 AC PO Diltiazem HCl 125 MG Q24H 07/30 1215 AC 07/31 Sodium Chloride 100 ML IV 0942 Doxycycline Hyclate 100 MG BID 07/30 2100 AC 07/31 PO 0807 Heparin Sodium 0 .STK-MED ONE 07/30 1434 DC (Porcine) .ROUTE Heparin Sodium 5,000 UNIT ONCE ONE 07/30 1330 DC 07/30 (Porcine) IV 07/30 1331 1453 Heparin Sodium 25,000 UNIT Q24H 07/30 1330 DC 07/30 (Porcine) IV 1453 Sodium Chloride 500 ML Ramelteon 8 MG ONCE ONE 07/30 2030 DC 07/30 PO 07/30 2030 2228 Sodium Chloride 1,000 ML Q13H 07/30 1845 DC 07/31 IV 0948 Sodium Chloride 1,000 ML BOLUS ONE 07/30 1130 DC 07/30 IV 07/30 1229 1145 Last 24 Hrs of Lab/Mike Results Last 24 Hrs of Labs/Mics: Laboratory Tests 07/31/17 0630: Anion Gap 5, Estimated GFR > 60, BUN/Creatinine Ratio 22.2, Calcium 7.0 L, CBC w Diff MAN DIFF ORDERED, RBC 4.35 L, MCV 90.7, MCH 30.9, MCHC 34.0, RDW 14.9 H , MPV 10.2, Gran % 77.7 H, Lymphocytes % 18.0 L, Monocytes % 3.3, Eosinophils % 0.5, Basophils % 0.5, Absolute Granulocytes 3.6, Segmented Neutrophils 71, Band Neutrophils 7 H, Absolute Lymphocytes 0.8 L, Lymphocytes 18 L, Monocytes 4, Absolute Monocytes 0.2, Absolute Eosinophils 0, Absolute Basophils 0, Platelet Estimate DECREASED, Anisocytosis 1+, A.phagocytophil DNA PCR Pending 07/31/17 0222: Anion Gap 5, Estimated GFR > 60, BUN/Creatinine Ratio 35.0 H, Calcium 5.8 *L, Phosphorus 2.6, Magnesium 2.1 07/31/17 022: Troponin I < 0.01, Albumin 2.2 L, 25-OH Vitamin D Total 20.9 L 07/30/17 2200: Sodium Cancelled, Potassium Cancelled, Chloride Cancelled, Carbon Dioxide Cancelled, Anion Gap Cancelled, BUN Cancelled, Creatinine Cancelled, BUN/ Creatinine Ratio Cancelled 07/30/17 2110: APTT 64 H 07/30/17 1808: Troponin I < 0.01, Lyme Disease Antibody Pending 07/30/17 1650: Anion Gap 9, Estimated GFR > 60, BUN/Creatinine Ratio 38.9 H Assessment/Plan Assessment: 62-year-old gentleman with past medical history of hyperlipidemia, hypertension was sent from Dr. Guo office with complaints of low blood pressure and hicough He is currently being treated and evaluated for following conditions Atrial fibrillation with RVR His atrial fibrillation can be secondary due to dehydration/systemic hypertension. Patient with peripheral smear showing Anaplasma but this causes heart block rather than atrial fibrillation. He has reverted back to normal sinus rhythm -IV Cardizem has been discontinued -Patient has been shifted to oral 30 mg every 6 Cardizem he can be discharged on 120mg extended release tablet -Noah VAS score 1 IV heparin was started on admission has been later discontinued anticoagulated with aspirin only #Anaplasmosis Afebrile overnight -We will continue doxycycline 100 mg twice daily -Lyme titer and Anaplasma PCR pending #Hypovolemic hyponatremia-patient was given 1 L of normal saline. His repeat sodium was also 123 hence got normal saline at 70 mL per hour with sodium correction not more than 8-10 mEq in 24 hours. -Improved up to 129 -Fluid restriction 1500 mL #Elevated BUN:CR-looks more likely prerenal as it anemia given that he was having decreased by mouth intake for the past few week. -Resolved #Hypocalcemia Patient has calcium of 7 with albumin of 2.2 his corrected calcium comes out to be 8.4 mg/dL initial value of 5 was likely an error #Cannabis use. Code-full code/Diet-heart healthy diet/DVT prophylaxis-on heparin Problem List: 1. Atrial fibrillation 2. Hyponatremia Pain Ratin Pain Location: na Pain Goal: Pain 4 or less Pain Plan: prn Tomorrow's Labs & Rationales: bep
--- NOTE | 2017-07-31 10:40 | PN- Cardiology ---
Subjective Subjective: The patient reports that he is feeling mostly well with intermittent headache. manager monitoring reveals sinus rhythm. No chest pain. No palpitations. No diaphoresis. No shortness of breath. Objective Vital Signs and I&Os Vital Signs Date Time Temp Pulse Resp B/P B/P Pulse O2 O2 Flow FiO2 Mean Ox Delivery Rate 07/31 0654 98.3 74 16 110/68 98 Room Air 07/30 2223 98.6 87 16 110/70 94 07/30 1649 98.2 91 18 114/66 96 07/30 1531 90 18 107/60 96 Room Air 07/30 1245 97 Room Air 07/30 1230 100 18 109/65 96 Room Air 07/30 1215 98.5 130 18 114/77 07/30 1152 98.5 130 18 114/77 97 Room Air Intake & Output 07/31 1600 07/31 0800 07/31 0000 07/30 1600 07/30 0800 07/30 0000 Intake Total 369 201 4480 Output Total 925 475 Balance 25 40 1000 Intake, IV 833 551 9811 Intake, Oral 300 200 Output, Urine 925 475 Patient 178 lb 170 lb Weight Weight Bed scale Estimated Measurement Method Physical Exam: Gen: NAD HEENT: normal Lungs: clear to auscultation, normal resp. effort Heart: RRR, S1, S2, no murmurs Abdomen: Soft, nontender, no masses Extremities: No clubbing, cyanosis, or edema. Neuro: Alert and oriented x 3, cranial nerves intact Current Medications: Current Medications Sig/Ernesto Start time Last Medication Dose Route Stop Time Status Admin Aspirin 81 MG DAILY 07/31 0700 AC 07/31 PO 0607 Atorvastatin Calcium 20 MG 1700 07/30 1700 AC 07/30 PO 1815 Diltiazem HCl 30 MG Q6 07/31 1200 AC PO Diltiazem HCl 0 .STK-MED ONE 07/30 1227 DC .ROUTE Diltiazem HCl 10 MG ONCE ONE 07/30 1215 DC 07/30 IV PUSH 07/30 1216 1215 Diltiazem HCl 125 MG Q24H 07/30 1215 AC 07/31 Sodium Chloride 100 ML IV 0942 Diltiazem HCl 0 .STK-MED ONE 07/30 1211 DC .ROUTE Doxycycline Hyclate 100 MG BID 07/30 2100 AC 07/31 PO 0807 Heparin Sodium 0 .STK-MED ONE 07/30 1434 DC (Porcine) .ROUTE Heparin Sodium 5,000 UNIT ONCE ONE 07/30 1330 DC 07/30 (Porcine) IV 07/30 1331 1453 Heparin Sodium 25,000 UNIT Q24H 07/30 1330 DC 07/30 (Porcine) IV 1453 Sodium Chloride 500 ML Ramelteon 8 MG ONCE ONE 07/30 2030 DC 07/30 PO 07/30 2031 2228 Sodium Chloride 1,000 ML Q13H 07/30 1845 DC 07/31 IV 0948 Sodium Chloride 1,000 ML BOLUS ONE 07/30 1130 DC 07/30 IV 07/30 1229 1145 Results Last 48 Hrs of Labs/Mics: Laboratory Tests 07/31/17 0630: Anion Gap 5, Estimated GFR > 60, BUN/Creatinine Ratio 22.2, Calcium 7.0 L, CBC w Diff MAN DIFF ORDERED, RBC 4.35 L, MCV 90.7, MCH 30.9, MCHC 34.0, RDW 14.9 H , MPV 10.2, Gran % 77.7 H, Lymphocytes % 18.0 L, Monocytes % 3.3, Eosinophils % 0.5, Basophils % 0.5, Absolute Granulocytes 3.6, Segmented Neutrophils 71, Band Neutrophils 7 H, Absolute Lymphocytes 0.8 L, Lymphocytes 18 L, Monocytes 4, Absolute Monocytes 0.2, Absolute Eosinophils 0, Absolute Basophils 0, Platelet Estimate DECREASED, Anisocytosis 1+, A.phagocytophil DNA PCR Pending 07/31/17 0222: Anion Gap 5, Estimated GFR > 60, BUN/Creatinine Ratio 35.0 H, Calcium 5.8 *L, Phosphorus 2.6, Magnesium 2.1 07/31/17 0222: Troponin I < 0.01, Albumin 2.2 L, 25-OH Vitamin D Total 20.9 L 07/30/17 2200: Sodium Cancelled, Potassium Cancelled, Chloride Cancelled, Carbon Dioxide Cancelled, Anion Gap Cancelled, BUN Cancelled, Creatinine Cancelled, BUN/ Creatinine Ratio Cancelled 07/30/17 2110: APTT 64 H 07/30/17 1808: Troponin I < 0.01, Lyme Disease Antibody Pending 07/30/17 1650: Anion Gap 9, Estimated GFR > 60, BUN/Creatinine Ratio 38.9 H 07/30/17 1218: Urine Color YEL, Urine Clarity CLEAR, Urine pH 6.0, Ur Specific [place] 1.020, Urine Protein NEG, Urine Ketones NEG, Urine Nitrite NEG, Urine Bilirubin NEG, Urine Urobilinogen 0.2, Ur Leukocyte Esterase NEG, Ur Microscopic SEDIMENT EXAMINED, Urine RBC 1-3, Urine WBC 1-3 H, Ur Epithelial Cells FEW, Hyaline Casts 1-3 H, Granular Casts 1-3 H, Urine Mucus FEW, Urine Hemoglobin TRACE- INTACT H, Urine Glucose NEG 07/30/17 1218: Urine Opiates Screen < 100, Methadone Screen < 40, Barbiturate Screen < 60, Ur Phencyclidine Scrn < 6.00, Amphetamines Screen < 100, U Benzodiazepines Scrn < 85, Urine Cocaine Screen < 50, Urine Cannabis Screen 79.10 H, Ur Random Creatinine 126.4, Ur Random Sodium < 5 L, Ur Random Potassium 23.0, Fraction Sodium Excret 0.0 07/30/17 1200: Anion Gap 12, Estimated GFR > 60, BUN/Creatinine Ratio 42.7 H, Glucose 181 H, Hemoglobin A1c Pending, Serum Osmolality 278 L, Calcium 7.9 L, Magnesium 2.9 H, Total Bilirubin 0.8, AST 66 H, ALT 65, Alkaline Phosphatase 64, Troponin I < 0.01, Total Protein 6.0 L, Albumin 2.9 L, Globulin 3.1, Albumin/Globulin Ratio 0.9 L, Lipase 183, TSH 1.320, Free T4 1.91, PT 13.8 H, INR 1.26 H, APTT 28, CBC w Diff MAN DIFF ORDERED, RBC 5.18, MCV 89.5, MCH 31.0, MCHC 34.6, RDW 15.1 H, MPV 9.1, Gran % 86.8 H, Lymphocytes % 9.9 L, Monocytes % 3.2, Eosinophils % 0.1, Basophils % 0, Absolute Granulocytes 7.3 H, Segmented Neutrophils 85 H, Absolute Lymphocytes 0.8 L, Lymphocytes 7 L, Monocytes 8, Absolute Monocytes 0.3, Absolute Eosinophils 0, Absolute Basophils 0, Platelet Estimate VERIFIED BY SMEAR, Normocytic RBCs VERIFIED, Normochromic RBCs VERIFIED, Serum Alcohol < 10.0 07/30/17 1131: Urine Osmolality 617 Assessment/Plan Assessment/Plan Assessment: 1. Hypertension 2. Paroxysmal atrial fibrillation, converted to sinus rhythm 3. Status post tick bite Plan: * Discontinue IV diltiazem * Start oral diltiazem 30 mg p.o. every 6 hours while in the hospital. Change to Cardizem CD 120 mg daily starting tomorrow morning, or on discharge * With discontinue lisinopril because the diltiazem will likely be sufficient blood pressure control. * Continue aspirin * Follow up with Dr. Allen in 1 week Continue telemetry? Yes
[2017-07-31 14:50] VITALS: BP 111/74
[2017-07-31 22:13] VITALS: BP 112/64
[2017-08-01 06:51] VITALS: BP 120/68
[2017-08-01 08:25] LABS: ABSOLUTE BASOPHIL COUNT 0 /CUMM (0.0-0.2); ABSOLUTE EOSINOPHIL COUNT 0 /CUMM (0.0-0.7); ABSOLUTE GRANULOCYTE CT 3.2 /CUMM (1.4-6.5); ABSOLUTE LYMPH COUNT 1.2 /CUMM (1.2-3.4); ABSOLUTE MONOCYTE COUNT 0.3 /CUMM (0.10-0.60); BASOPHIL % 0.6 % (0.0-2.0); EOSINOPHIL % 0.6 % (0-5); GRANULOCYTE % 66.8 % (42.2-75.2); MEAN CORPUSCULAR HGB 30.5 PG (27.0-31.0); MEAN CORPUSCULAR HGB CONC 33.8 G/DL (33.0-37.0); MEAN CORPUSCULAR VOLUME 90.3 FL (80.0-94.0); MEAN PLATELET VOLUME 9.3 FL (7.4-10.4); PLATELET COUNT 157 /CUMM (130-400); RBC DISTRIBUTION WIDTH 15.3 % (11.5-14.5); RED BLOOD CELL CT 4.43 /CUMM (4.70-6.10); WHITE BLOOD CELL COUNT 4.7 /CUMM (4.8-10.8)
--- NOTE | 2017-08-01 08:27 | PN- Housestaff ---
Galen KEENAN,Brayden 08/01/17 0827: Subjective Follow-up For: afib rvr Anaplasma Pre-renal azotemia Subjective: Seen and examined at bedside.He remains afebrile. He endorses no symptoms such as fever/chills, sob/cp. He ramains in sinus rythm since converting on day 1. No acute o/n telementry or nursing reports noted. Review of Systems Constitutional: Reports: see HPI. Objective Last 24 Hrs of Vital Signs/I&O Vital Signs Date Time Temp Pulse Resp B/P B/P Pulse O2 O2 Flow FiO2 Mean Ox Delivery Rate 08/01 0651 97.8 79 18 120/68 96 Nasal Cannula 07/31 2312 79 112/64 07/31 2213 98.3 79 18 112/64 95 07/31 1705 74 118/72 07/31 1450 97.8 89 16 111/74 96 Nasal Cannula 07/31 1243 75 118/74 Intake & Output 08/01 1600 08/01 0800 08/01 0000 Intake Total 120 Output Total Balance 120 Intake, Oral 120 Patient 79.861 kg Weight Physical Exam General Appearance: Alert, Oriented X3, Cooperative Neck: Supple, No JVD Lymphatic: Cervical nl Cardiovascular: Regular Rate, Normal S1, Normal S2 Lungs: Clear to Auscultation, Normal Air Movement Neurological: Normal Gait, Normal Speech, Strength at 5/5 X4 Ext, Normal Tone, Sensation Intact Extremities: No Clubbing, No Edema, No Tenderness/Swelling Other Physical Findings: Cardiovascular: Normal S1, Normal S2 Lungs: Clear to Auscultation Abdomen: Normal Bowel Sounds, Soft Neurological: Normal Speech Current Medications: Current Medications Sig/Ernesto Start time Last Medication Dose Route Stop Time Status Admin Aspirin 81 MG DAILY 07/31 0700 AC 08/01 PO 0809 Atorvastatin Calcium 20 MG 1700 07/30 1700 AC 07/31 PO 1704 Magnolia Butter/Shark 1 ARLETH Q6P PRN 07/31 1730 AC 07/31 Liver Oil TOP 1726 Diltiazem HCl 120 MG DAILY 08/01 0900 AC 08/01 PO 0810 Diltiazem HCl 30 MG Q6 07/31 1200 DC 07/31 PO 08/01 0000 2312 Diltiazem HCl 125 MG Q24H 07/30 1215 DC 07/31 Sodium Chloride 100 ML IV 0942 Doxycycline Hyclate 100 MG BID 07/30 2100 AC 08/01 PO 0809 Phenylephrine HCl 1 ARLETH Q6P PRN 07/31 1445 DC [place] Ramelteon 8 MG ONCE ONE 07/31 2200 DC 07/31 PO 07/31 2201 2312 Sodium Chloride 1,000 ML Q13H 07/30 1845 DC 07/31 IV 0948 Assessment/Plan Assessment: 62-year-old gentleman with past medical history of hyperlipidemia, hypertension was sent from Dr. Guo office with complaints of low blood pressure and hicough He is currently being treated and evaluated for following conditions Atrial fibrillation with RVR Now in sinus rhythm with rate control, IV Cardizem was switched to oral yesterday, will plan to transition to Cardizem CD 120mg today. Patient will be discharged with aspirin given his low chads score. #Anaplasmosis Afebrile overnight, however his white count and platelets showing a down trend. He is already optimized with doxycycline and is on day 3. We'll continue to trend white count and platelets and monitor for any fevers. -Lyme titer and Anaplasma PCR pending #Hypovolemic hyponatremia: Appropriately correcting. #Cannabis use. Code-full code/Diet-heart healthy diet/DVT prophylaxis-on heparin Problem List: 1. Atrial fibrillation 2. Hyponatremia Pain Ratin Pain Location: none Pain Goal: Remain pain free Pain Plan: per pathway Tomorrow's Labs & Rationales: cbc bep Marivel KEENAN,[facility] 08/01/17 1547: Attending MD Review Statement Attending Statement Attending MD Statement: examined this patient, discuss w/resident/PA/NURSERY HELPER, agreed w/resident/PA/NURSERY HELPER, reviewed EMR data (avail) Attending Assessment/Plan: Doing well, active and eager to go. Rate controlled, in NSR. Will discharge on Cardizem, Doxycycline for total 10 days, ASA for AC, follow up with cardiology.
--- NOTE | 2017-08-01 08:47 | PN- Infect Dx ---
Subjective Subjective: Afebrile. His headache and neck pain have resolved. He has apparently converted to normal sinus rhythm. Objective Last 24 Hrs of Vital Signs/I&O Vital Signs Date Time Temp Pulse Resp B/P B/P Pulse O2 O2 Flow FiO2 Mean Ox Delivery Rate 08/01 0651 97.8 79 18 120/68 96 Nasal Cannula 07/31 2312 79 112/64 07/31 2213 98.3 79 18 112/64 95 07/31 1705 74 118/72 07/31 1450 97.8 89 16 111/74 96 Nasal Cannula 07/31 1243 75 118/74 Intake & Output 08/01 1600 08/01 0800 08/01 0000 Intake Total 120 Output Total Balance 120 Intake, Oral 120 Patient 176 lb Weight Physical Exam Other Physical Findings: He appears comfortable in no acute distress Lungs are clear Heart regular rhythm with no murmur Extremities no cyanosis, clubbing or edema Results Last 24 Hours of Lab Results: Laboratory Tests 08/01 07/31 0655 0910 Chemistry Sodium Pending Potassium Pending Chloride Pending Carbon Dioxide Pending Anion Gap Pending BUN Pending Creatinine Pending BUN/Creatinine Ratio Pending Coagulation APTT Cancelled Hematology CBC w Diff NO MAN DIFF REQ WBC (4.8 - 10.8 /CUMM) 4.7 L RBC (4.70 - 6.10 /CUMM) 4.43 L Hgb (14.0 - 18.0 G/DL) 13.5 L Hct (42 - 52 %) 40.0 L MCV (80.0 - 94.0 FL) 90.3 MCH (27.0 - 31.0 PG) 30.5 MCHC (33.0 - 37.0 G/DL) 33.8 RDW (11.5 - 14.5 %) 15.3 H Plt Count (130 - 400 /CUMM) 157 MPV (7.4 - 10.4 FL) 9.3 Gran % (42.2 - 75.2 %) 66.8 Lymphocytes % (20.5 - 51.1 %) 24.7 Monocytes % (1.7 - 9.3 %) 7.3 Eosinophils % (0 - 5 %) 0.6 Basophils % (0.0 - 2.0 %) 0.6 Absolute Granulocytes (1.4 - 6.5 /CUMM) 3.2 Absolute Lymphocytes (1.2 - 3.4 /CUMM) 1.2 Absolute Monocytes (0.10 - 0.60 /CUMM) 0.3 Absolute Eosinophils (0.0 - 0.7 /CUMM) 0 Absolute Basophils (0.0 - 0.2 /CUMM) 0 Last 24 Hours of Mike Results: No recent cultures Assessment/Plan ID Impression: Stable, with temperatures remaining normal, on Doxycycline, Day 2 of treatment for presumed Anaplasma, 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 Suggestion: 1. Follow-up PCR for Anaplasma and Lyme titer 2. Continue Doxycycline to plan on a 10 day course pending above
--- NOTE | 2017-08-01 09:03 | ECHOCARDIOGRAM REPORT ---
AMANDA FOWLER Age: 62 : 1955 Gender: M Exam Date: 07/31/2017 08:57 Exam Location: 1 [address] Ht (in): 70 Wt (lb): 170 BSA: 1.96 BP: 110 / 68 Ordering Physician: Candie Sue MD Referring Physician: Candie Sue MD Technologist: Socorro Cowart [facility] Room Number: [id number] Indications: Rhythm: Sinus Technical Quality: good FINDINGS Left Ventricle Normal left ventricular size, wall thickness and systolic function with no obvious regional wall motion abnormalities. Normal left ventricular diastolic filling pattern for age. The ejection fraction is visually estimated at 60%. Right Ventricle The right ventricle is normal in size and function. Right Atrium The right atrium is normal in size. Left Atrium The left atrium is normal in size. The interatrial septum is intact. Mitral Valve The mitral valve is normal in structure and function. There is trace mitral regurgitation. Aortic Valve Structurally normal aortic valve without significant sclerosis or stenosis. There is no aortic regurgitation. Tricuspid Valve The tricuspid valve is normal in structure and function. There is no tricuspid regurgitation. Pulmonic Valve Structurally normal pulmonic valve. There is mild pulmonic regurgitation. Pericardium Normal pericardium without effusion. No pleural effusion. Great Vessels Normal aortic root dimension. The aortic arch and great vessels are well seen and are normal. CONCLUSIONS 1. Normal EF of 60%. 2. Trace mitral regurgitation. 3. Mild pulmonic regurgitation. Roni Allen M.D. (Electronically Signed) Final Date: 01 August 2017 09:02 MEASUREMENTS (Male / Female) Normal Values 2D ECHO LV Diastolic Diameter PLAX 4.3 cm 4.2 - 5.9 / 3.9 - 5.3 cm LV Systolic Diameter PLAX 2.6 cm 2.1 - 4.0 cm LV Fractional Shortening PLAX 39.5 % 25 - 46 % LV Ejection Fraction 2D Teich 70.4 % IVS Diastolic Thickness 1.3 cm LVPW Diastolic Thickness 1.1 cm LV Relative Wall Thickness 0.6 LVOT Diameter 2.0 cm Aortic Root Diameter 3.3 cm LA Systolic Diameter LX 3.5 cm 3.0 - 4.0 / 2.7 - 3.8 cm LV Ejection Fraction MOD BP 64.7 % >= 55 % LV Diastolic Length 4C 7.1 cm 6.9 - 10.3 cm LV Diastolic Area 4C 26.1 cm LV Diastolic Volume MOD 4C 79.0 cm LV Ejection Fraction MOD 4C 75.9 % LV Stroke Volume MOD 4C 60.0 cm LV Systolic Length 4C 5.8 cm LV Systolic Area 4C 11.4 cm LV Systolic Volume MOD 4C 19.0 cm LV Ejection Fraction MOD 2C 45.5 % LV Diastolic Volume 4C AL 81.6 cm 85 - 139 / 69 - 109 cm LV Systolic Volume 4C AL 19.1 cm LV Ejection Fraction 4C AL 76.6 % LV Stroke Volume 4C AL 62.5 cm LV Ejection Fraction 2C AL 47.2 % LA Volume 42.0 cm 18 - 58 / 22 - 52 cm DOPPLER AV Peak Velocity 141.0 cm/s AV Peak Gradient 8.0 mmHg LVOT Peak Velocity 111.0 cm/s LVOT Peak Gradient 4.9 mmHg AV Area Cont Eq pk 2.5 cm Mitral E Point Velocity 69.1 cm/s Mitral A Point Velocity 61.7 cm/s Mitral E to A Ratio 1.1 MV Deceleration Time 282.0 ms TR Peak Velocity 263.0 cm/s TR Peak Gradient 27.7 mmHg PV Peak Velocity 140.0 cm/s PV Peak Gradient 7.8 mmHg LV E' Lateral Velocity 13.8 cm/s Mitral E to LV E' Lateral Ratio 5.0 LV E' Septal Velocity 8.8 cm/s Mitral E to LV E' Septal Ratio 7.9
[2017-08-01] MEDS ORDERED: DOXYCYCLINE HY100 M2 PO (13:46)
--- NOTE | 2017-08-01 13:46 | Patient Discharge Instructions ---
Discharge Instructions General Discharge Information You were seen/treated for: afib rvr Anaplasma Pre-renal azotemia Special Instructions: 1please follow-up with your PCP in 1 week of discharge 2please follow-up with your janitorial tech in 1 week of discharge 3please get BEP in 1 week of discharge and report the results with your PCP Diet Continue normal diet: No Recommended Diet: Heart Healthy Acute Coronary Syndrome Inclusion Criteria At DC or during hospital stay patient has or had the following: ACS DIAGNOSIS No Discharge Core Measures Meds if any: Prescribed or Continued at Discharge Meds if any: NOT Prescribed or Continued at Discharge Congestive Heart Failure Inclusion Criteria At DC or during hospital stay patient has or had the following: CHF DIAGNOSIS No Discharge Core Measures Meds if any: Prescribed or Continued at Discharge Meds if any: NOT Prescribed or Continued at Discharge Cerebrovascular accident Inclusion Criteria At DC or during hospital stay patient has or had the following: CVA/TIA Diagnosis No Discharge Core Measures Meds if any: Prescribed or Continued at Discharge Meds if any: NOT Prescribed or Continued at Discharge Venous thromboembolism Inclusion Criteria VTE Diagnosis No VTE Type NONE VTE Confirmed by (Test) NONE Discharge Core Measures - Per Current guidelines, there needs to be overlap - treatment for the first 5 days of Warfarin therapy. - If discharged on Warfarin prior to 5 days of - overlap therapy, the patient will need to be - assessed for post discharge needs including - *Post discharge parental anticoagulation - *Warfarin and/or parental anticoagulation education - *Follow up date to check INR post discharge At least 5 days overlap therapy as Inpatient No Meds if any: Prescribed or Continued at Discharge Note: Overlap Therapy is Warfarin and Anticoagulant Meds if any: NOT Prescribed or Continued at Discharge
[2017-08-01] MEDS ORDERED: ASPIRIN EC81 M1 PO (13:49)
--- NOTE | 2017-08-02 11:53 | Discharge Summary ---
Visit Information Visit Dates Admission Date: 07/30/17 Discharge Date: 08/01/17 Hospital Course Course Attending Physician: Alex KEENAN,Mariel Cannon Primary Care Physician: Aisha KEENAN,[facility] Course: 62-year-old gentleman with past medical history of hypertension, dyslipidemia was sent from Dr. Guo office with complaints of low blood pressure and hicough. was in usual state of health until 10 days ago, following which had intractable hiccups with nausea and couple of episodes of vomiting and saw Dr. Guo who started him on antiemetic and baclofen. Patient's hiccups stopped but patient developed shooting"arterial pulsation" going from his neck to the head on and off for the past 4 days. Patient went to see his primary care physician again who suggested to stop baclofen and checked his blood pressure which was found to be in 80s and hence was sent to [facility]. He denied chest pain, palpitation, fever, chills, abdominal pain, diarrhea, constipation, weakness, numbness, tingling sensation during the same time. Patient gives history of tick bite 10 days ago which he pulled it off. hospital course: Atrial fibrillation with RVR Now in sinus rhythm with rate control, IV Cardizem was switched to oraL. Patient will be discharged with aspirin given his low chads score. #Anaplasmosis Patient had a history of tick bite. Patient smear positive for Anaplasma. He was started on doxycycline 100 twice daily for a total of 10 days. Awaiting Lyme titer and Anaplasma PCR pending. #Hypovolemic hyponatremia: Appropriately correctED. Allergies: Coded Allergies: No Known Allergies (07/30/17) Pertinent Lab Results: Chest x-ray Trace left pleural effusion. The lungs are otherwise clear. Echocardiogram 1. Normal EF of 60%. 2. Trace mitral regurgitation. 3. Mild pulmonic regurgitation. Disposition Summary Disposition Principal Diagnosis: Paroxysmal atrial fibrillation converted to sinus rhythm Additional Diagnosis: Anaplasmosis Discharge Disposition: home or self care Discharge Instructions General Discharge Information Code Status: Full Code Patient's Diet: Regular diet Patient's Activity: As tolerated Follow-Up Instructions/Appts: 1please follow-up with your PCP in 1 week of discharge 2please follow-up with your administrative project coordinator in 1 week of discharge 3please get BEP in 1 week of discharge and report the results with your PCP 4 please follow-up with your LymE, Anaplasma PCR titer with your primary care physician Medications at Discharge Discharge Medications: Stop taking the following medications: Lisinopril (Lisinopril) 20 MG TABLET ORAL DAILY Qty = 30 Continue taking these medications: Simvastatin (Simvastatin*) 40 MG TABLET 1 Tablet ORAL Every night Qty = 30 Comments: ATORVASTATIN GIVEN SUBSTITUTE Last Taken: 07/31/17 Time: 5:00PM Pantoprazole Sodium (Pantoprazole Sodium) 40 MG TABLET.DR 1 Tablet ORAL DAILY Qty = 30 Comments: NOT GIVEN Zolpidem Tartrate (Zolpidem Tartrate ER) 12.5 MG TAB.MPHASE 1 Tablet ORAL Every night Qty = 30 Comments: NOT GIVEN Testosterone (Testosterone) 50 MG/5 GRAM (1 %) GEL..GRAM. 1 Tube On the skin DAILY Qty = 150 Comments: NOT GIVEN Start taking the following new medications: Doxycycline Hyclate (Doxycycline Hyclate) 100 MG CAPSULE 100 Milligram ORAL TWICE DAILY Qty = 14 No Refills Comments: Last Taken: 08/01/17 Time: 0800 Aspirin (Ecotrin*) 81 MG TABLET.DR 1 Tablet ORAL DAILY Qty = 30 No Refills Comments: Last Taken: 08/01/17 Time: 8:00 AM Copies To: Aisha KEENAN,Shon Allen MD PHD,Roni Coleman
== END 2017-08-01 14:40 | DRG 309 ==
LOC: ERH 11:27 → ERHI 13:25 → ENRESERV 13:48 → 1NO 16:29 → ENPENDDIS 08-01 13:57 → 1NO 08-01 14:40
PROVIDERS: Internal Medicine; Physician Assistant; Physician Assistant Medical
DX: I48.0 Paroxysmal atrial fibrillation (principal); E87.1 Hypo-osmolality and hyponatremia; A77.49 Other ehrlichiosis; E86.1 Hypovolemia; F12.90 Cannabis use, unspecified, uncomplicated; E78.5 Hyperlipidemia, unspecified; I10 Essential (primary) hypertension; R79.89 Other specified abnormal findings of blood chemistry; W57.XXXA Bitten or stung by nonvenomous insect and other nonvenomous arthropods, initial encounter; R73.9 Hyperglycemia, unspecified
CPT/HCPCS: 1NP; 84133; 84300; 86618; 87798; 36415; 36592; 71045; 80307; 81001; 82436; 82570; 93005; 93010; 93306; G0480; J1644; J3490